=== PATIENT | female | born 1950 ===

== ENCOUNTER 2018-01-29 06:37 | Day surgery (SDC) | payer OTHER ==
[~2018-01-29 06:37] MED LIST: INTESTINEX1 CA1 PO; NEUROTIN; TRAM1TAB98 PO; VASERETIC 10-251 TA1
== END 2018-01-29 11:05 | disposition home or self-care (01) ==
LOC: CIR.AMB 06:37
DX: K57.30 Diverticulosis of large intestine without perforation or abscess without bleeding (principal); K64.8 Other hemorrhoids; Z86.010 Personal history of colon polyps